=== PATIENT | female | born 1955 | race Caucasian/White ===

== ENCOUNTER → 2017-09-08 | Outpatient (CLI) | payer MEDICARE, MEDICAID ==
[~2017-09-08] MED LIST: FLUOXETINE40 MG PO; LYRICA 100 MG100 MG PO; MELOXICAM15 MG PO; NORCO 325 MG-51 TAB PO
[2017-09-08 19:49] LABS: LYMPH # 3.5 K/mm3 (0.7-4.5); LYMPH % 30.1 % (10-50.0)
[2017-09-08 20:05] LABS: BUN 13 mg/dL (7-18)
[2017-09-08 20:22] LABS: GFR (ESTIMATED) 57 ML/MIN (59-)
[2017-09-10 08:47] LABS: Thyroid Peroxidase (TPO) Ab 17 IU/mL (0-34)
[2017-09-10 09:37] LABS: Folate (Folic Acid) 8.5 ng/mL (>3.0); HBsAg Screen Negative (Negative); Hep A Ab, IgM Negative (Negative); Hep B Core Ab, IgM Negative (Negative); Hep C Virus Ab <0.1 (0.0-0.9); Vitamin B12 355 pg/mL (211-946)
[2017-09-10 14:39] LABS: Thyroglobulin Antibody <1.0 IU/mL (0.0-0.9)
== END ==
LOC: LAB 19:29
PROVIDERS: Physician Assistant
DX: L65.9 Nonscarring hair loss, unspecified (principal); R23.2 Flushing; E55.9 Vitamin D deficiency, unspecified; Z79.899 Other long term (current) drug therapy